=== PATIENT | female | born 1980 | race Caucasian/White ===

== ENCOUNTER 2018-11-10 01:06 | Emergency (ER) | payer OTHER ==
[~2018-11-10] VITALS: Ht 170.2 cm; Wt 58.1 kg
[2018-11-10 01:24] VITALS: Ht 170.2 cm; Wt 58.1 kg
[2018-11-10 01:52] VITALS: BP 138/89
== END 2018-11-10 01:53 | disposition other institution (70) ==
LOC: ED 01:06
DX: Z02.89 Encounter for other administrative examinations (principal)